=== PATIENT | male | born 1970 | race Caucasian/White ===

== ENCOUNTER → 2016-09-21 | Outpatient (CLI) | payer BC ==
--- NOTE | 2016-09-21 08:33 | CT ---
EXAMINATION TYPE: CT brain wo con DATE OF EXAM: 09/21/2016 8:16 AM COMPARISON: NONE HISTORY: TIA CT DLP: 943.[address] of the brain was performed. The ventricles, basal cisterns and sulci overlying the cerebral convexities demonstrate a normal appe arance. There is no evidence for intracranial hemorrhage or sulcal effacement. No mass effects are seen. Osseous calvarium is intact. Mucous retention cyst left maxillary sinus. If symptoms persist consider MRI as clinically warranted. IMPRESSION: 1. No acute intracranial process is seen at this time.
--- NOTE | 2016-09-21 10:56 | ECHOF ---
Referral Reason:G45.9 TIA MEASUREMENTS -------- HEIGHT: 160.0 cm WEIGHT: 63.5 kg BP: RVIDd: 2.8 cm (< 3.3) IVSd: 1.2 cm (0.6 - 1.1) LVIDd: 4.6 cm (3.9 - 5.3) LVPWd: 0.7 cm (0.6 - 1.1) IVSs: 1.3 cm LVIDs: 3.6 cm LVPWs: 1.1 cm LA Diam: 2.8 cm (2.7 - 3.8) Ao Diam: 2.9 cm (2.0 - 3.7) AV Cusp: 1.7 cm (1.5 - 2.6) LA Diam: 3.3 cm (2.7 - 3.8) MV EXCURSION: 25.662 mm (> 18.000) MV EF SLOPE: 77 mm/s (70 - 150) EPSS: 0.2 cm MV E Joseluis: 0.65 m/s MV DecT: 199 ms MV A Joseluis: 1.13 m/s MV E/A Ratio: 0.57 RAP: 5.00 mmHg RVSP: 9.20 mmHg FINDINGS -------- Sinus rhythm. This was a technically good study. There is mild concentric left ventricular hypertrophy. Overall left ventricular systolic function is low-normal with, an EF between 50 - 55 %. The right ventricle is normal in size. The right atrial size is normal. The aortic valve is trileaflet, and appears structurally normal. No aortic stenosis or regurgitation. Mild mitral regurgitation is present. Redundant MV Leaflet Mild tricuspid regurgitation present. There is no evidence of pulmonary hypertension. The right ventricular systolic pressure, as measured by Doppler, is 9.20mmHg. There is no pulmonic regurgitation present. The aortic root size is normal. There is no pericardial effusion. CONCLUSIONS -------- 1. There is mild concentric left ventricular hypertrophy. 2. Overall left ventricular systolic function is low-normal with, an EF between 50 - 55 %. 3. Mild mitral regurgitation is present. 4. Redundant MV Leaflet 5. Mild tricuspid regurgitation present. 6. There is no evidence of pulmonary hypertension. 7. The right ventricular systolic pressure, as measured by Doppler, is 9.20mmHg. IRISH MOSS GATHERER: Whitney Granados RDCS
== END | disposition home or self-care (01) ==
LOC: RADCTMAIN 07:48
PROVIDERS: ATTEND Internal Medicine
DX: I51.7 Cardiomegaly (principal); I08.1 Rheumatic disorders of both mitral and tricuspid valves; G45.9 Transient cerebral ischemic attack, unspecified
CPT/HCPCS: 70450; 93306

== ENCOUNTER 2017-01-03 09:27 | Emergency (ER) | payer BC ==
[2017-01-03 09:48] VITALS: BP 169/92; PULSE 69; RESP 18; TEMP 97.6
--- NOTE | 2017-01-03 09:58 | ED ---
General Adult HPI - General Chief complaint: Dental/Oral Stated complaint: Dental Time Seen by Provider: 01/03/17 09:52 Source: patient, RN notes reviewed Mode of arrival: ambulatory Limitations: no limitations - History of Present Illness Initial comments: 46-year-old male presents to the emergency Department chief complaint of dental pain. Patient states he started to have dental pain on Monday. Monday he called his dentist he was seen and they state that he needs to have some teeth removed. Patient states he is not starting antibiotics with some swelling to the right side of the face that he was concerned. patient states he called his dentist is . they are unable to see him today to come to the er. patient denies any pain opening closing mouth any pain into the neck. patient states that he has not had any fever chills. patient denies any other symptoms at this time.Patient denies any recent fever, chills, shortness of breath, chest pain, back pain, abdominal pain, nausea vomiting, numbness or tingling, dysuria or hematuria, constipation or diarrhea, headaches or visual changes, or any other current symptoms. - Related Data Previous Rx's Medication Instructions Recorded Acetaminophen-Codeine 300-30mg 1 tab PO Q4H PRN #20 tablet 06/01/15 [Tylenol w/codeine #3] Ibuprofen [Motrin] 600 mg PO Q8HR PRN #20 tab 06/01/15 Penicillin V Potassium [Pen Vee K] 500 mg PO TID #40 tab 01/03/17 Allergies Allergy/AdvReac Type Severity Reaction Status Date / Time No Known Allergies Allergy Verified 01/03/17 09:48 Review of Systems ROS Statement: Those systems with pertinent positive or pertinent negative responses have been documented in the HPI. ROS Other: All systems not noted in ROS Statement are negative. Past Medical History Additional Past Medical History / Comment(s): congenital heart disease, History of Any Multi-Drug Resistant Organisms: None Reported Additional Past Surgical History / Comment(s): heart surgery, testicular surgery Past Psychological History: No Psychological Hx Reported Smoking Status: Current every day smoker Past Alcohol Use History: None Reported Past Drug Use History: None Reported General Exam Limitations: no limitations General appearance: alert, in no apparent distress Head exam: Present: atraumatic, normocephalic. Absent: normal inspection ( Minimal right-sided upper cheek swelling) Eye exam: Present: normal appearance, PERRL, EOMI. Absent: scleral icterus, conjunctival injection, periorbital swelling ENT exam: Present: normal external ear exam Expanded Teeth exam: Present: dental caries, dental tenderness # (6 and 7), other (No abscess visualized). Absent: fractured tooth #, gingival enlargement Neck exam: Present: normal inspection. Absent: tenderness, meningismus, lymphadenopathy Respiratory exam: Present: normal lung sounds bilaterally. Absent: respiratory distress, wheezes, rales, rhonchi, stridor Cardiovascular Exam: Present: regular rate, normal rhythm, normal heart sounds. Absent: systolic murmur, diastolic murmur, rubs, gallop, clicks Neurological exam: Present: alert, oriented X3 Psychiatric exam: Present: normal affect, normal mood Skin exam: Present: warm, dry, intact, normal color. Absent: rash Course Vital Signs 01/03/17 09:45 Temperature 97.6 F Pulse Rate 69 Respiratory 18 Rate Blood Pressure 169/92 O2 Sat by Pulse 99 Oximetry Medical Decision Making - Medical Decision Making 46-year-old male presents to the emergency Department chief complaint of dental pain. This and we will start patient antibiotics. We discussed continued follow-up with a dentist. We did discuss return parameters all the patient's questions. They stated the [facility] management plan. All questions have been answered. This time the patient will be discharged home. Disposition Clinical Impression: Dental caries Disposition: HOME SELF-CARE Condition: Stable Instructions: Dental Caries (ED) Additional Instructions: Please use medication as discussed. Please follow up with family doctor if symptoms have not improved over the next two days. Please return to the emergency room if your symptoms increase or worsen or for any other concerns. Prescriptions: Penicillin V Potassium [Pen Vee K] 500 mg PO TID #40 tab Referrals: Magali Gallego MD [Primary Care Provider] - 1-2 days Time of Disposition: 09:58
== END 2017-01-03 10:12 | disposition home or self-care (01) ==
LOC: EC 09:27
DX: K02.9 Dental caries, unspecified (principal); Q24.9 Congenital malformation of heart, unspecified; F17.200 Nicotine dependence, unspecified, uncomplicated
CPT/HCPCS: 99282

== ENCOUNTER 2018-07-30 14:55 | Emergency (ER) | payer BC ==
[2018-07-30 15:26] VITALS: BP 116/75; PULSE 80; RESP 18; TEMP 98
--- NOTE | 2018-07-30 15:44 | XR ---
EXAMINATION TYPE: XR chest 2V DATE OF EXAM: 07/30/2018 COMPARISON: NONE HISTORY: Cough and congestion. TECHNIQUE: Frontal and lateral views of the chest are obtained. FINDINGS: There is no focal air space opacity, pleural effusion, or pneumothorax seen. The cardiac silhouette size is within normal limits. The osseous structures are demineralized. Spine is straigh tened on lateral view. IMPRESSION: No suspicious acute pulmonary process.
--- NOTE | 2018-07-30 16:45 | ED ---
Fever HPI - General Chief Complaint: Fever Stated Complaint: poss cold or flu Time Seen by Provider: 07/30/18 16:43 Source: patient, RN notes reviewed, old records reviewed Mode of arrival: ambulatory Limitations: no limitations - History of Present Illness Initial Comments: This is a 47-year-old male to the ER for evaluation presents for not feeling we ll. Cough congestion and body aches. Sick contacts, positive family members with influenza. Patient himself has illness, takes no medications denies drugs or alcohol. MD Complaint: fever, weakness -: days(s) Temperature Source: subjective Context: sick contacts, multiple patients with similar symptoms Associated Symptoms: chills, myalgias, headache, nasal congestion, sore throat, cough, chest pain, abdominal pain, nausea Treatments Prior to Arrival: Acetaminophen, Ibuprofen - Related Data Previous Rx's Medication Instructions Recorded Penicillin V Potassium [Pen Vee K] 500 mg PO TID #40 tab 01/03/17 Naproxen [Naprosyn] 500 mg PO Q12HR PRN #30 tab 07/30/18 Oseltamivir [Tamiflu] 75 mg PO Q12HR #10 cap 07/30/18 Allergies Allergy/AdvReac Type Severity Reaction Status Date / Time No Known Allergies Allergy Verified 07/30/18 15:26 Review of Systems ROS Statement: Those systems with pertinent positive or pertinent negative responses have been documented in the HPI. ROS Other: All systems not noted in ROS Statement are negative. Past Medical History Additional Past Medical History / Comment(s): congenital heart disease, History of Any Multi-Drug Resistant Organisms: None Reported Additional Past Surgical History / Comment(s): heart surgery, testicular surgery Past Psychological History: No Psychological Hx Reported Smoking Status: Current every day smoker Past Alcohol Use History: None Reported Past Drug Use History: None Reported General Exam Limitations: no limitations General appearance: alert, in no apparent distress Head exam: Present: atraumatic, normocephalic, normal inspection Eye exam: Present: normal appearance, PERRL, EOMI. Absent: scleral icterus, conjunctival injection, periorbital swelling ENT exam: Present: normal exam, mucous membranes moist Neck exam: Present: normal inspection. Absent: tenderness, meningismus, lymphadenopathy Respiratory exam: Present: normal lung sounds bilaterally. Absent: respiratory distress, wheezes, rales, rhonchi, stridor Cardiovascular Exam: Present: regular rate, normal rhythm, normal heart sounds. Absent: systolic murmur, diastolic murmur, rubs, gallop, clicks GI/Abdominal exam: Present: soft, normal bowel sounds. Absent: distended, tenderness, guarding, rebound, rigid Extremities exam: Present: normal inspection, full ROM, normal capillary refill. Absent: tenderness, pedal edema, joint swelling, calf tenderness Back exam: Present: normal inspection Neurological exam: Present: alert, oriented X3, CN II-XII intact Psychiatric exam: Present: normal affect, normal mood Skin exam: Present: warm, dry, intact, normal color. Absent: rash Course Vital Signs 07/30/18 15:23 Temperature 98.0 F Pulse Rate 80 Respiratory 18 Rate Blood Pressure 116/75 O2 Sat by Pulse 99 Oximetry - Reevaluation(s) Reevaluation #1: Medical record is reviewed Patient symptoms are much improved Medical Decision Making - Medical Decision Making 47 male the ER for evaluation of abdominal pain and aches and myalgias. Positive influenza. Patient can be discharged home - Lab Data Lab Results 07/30/18 Range/Units 15:28 Influenza Type A RNA Detected H (Not Detectd) Influenza Type B (PCR) Not Detected (Not Detectd) - Radiology Data Radiology results: report reviewed (Chest x-rays negative for acute disease), image reviewed Disposition Clinical Impression: Influenza, Influenza A Disposition: HOME SELF-CARE Condition: Good Instructions (If sedation given, give patient instructions): Fever in Adults (ED), Influenza (ED) Prescriptions: Naproxen [Naprosyn] 500 mg PO Q12HR PRN #30 tab PRN Reason: Pain Oseltamivir [Tamiflu] 75 mg PO Q12HR #10 cap Is patient prescribed a controlled substance at d/c from ED?: No Referrals: None,Stated [Primary Care Provider] - 1-2 days
== END 2018-07-30 16:58 | disposition home or self-care (01) ==
LOC: EC 14:55
DX: J10.1 Influenza due to other identified influenza virus with other respiratory manifestations (principal); R07.9 Chest pain, unspecified; R10.9 Unspecified abdominal pain; R11.0 Nausea; F17.200 Nicotine dependence, unspecified, uncomplicated; Z87.74 Personal history of (corrected) congenital malformations of heart and circulatory system; Z98.890 Other specified postprocedural states
CPT/HCPCS: 71046; 87502; 99284

== ENCOUNTER 2019-04-11 03:49 | Emergency (ER) | payer BC, OTHER ==
[2019-04-11 03:56] VITALS: BP 135/74; PULSE 83; RESP 16; TEMP 97.9
--- NOTE | 2019-04-11 04:28 | XR ---
EXAMINATION TYPE: XR foot limited LT DATE OF EXAM: 04/11/2019 COMPARISON: NONE HISTORY: Foot pain TECHNIQUE: 2 views FINDINGS: Metatarsals are intact. I see no fracture nor dislocation. There is an Achilles calcaneal s pur. There are no erosions. IMPRESSION: Minimal calcaneal spurring. No fracture seen.
--- NOTE | 2019-04-11 04:33 | ED ---
Lower Extremity Injury HPI - General Chief Complaint: Extremity Injury, Lower Stated Complaint: lt foot injury Time Seen by Provider: 04/11/19 04:03 Source: patient Mode of arrival: ambulatory Limitations: no limitations - History of Present Illness Initial Comments: Hang is a 48-year-old male who presents to the emergency department today for evaluation of pain in his right great toe. Patient reports that yesterday evening he stubbed his toe, he states that the toe bent and kind of folded under the foot as he was walking on carpet. He had some minimal pain at that time but it was tolerable. He was able to sleep throughout the night but upon waking this morning his toe was throbbing he noticed that it seemed to be more bruised than it was previously he was concerned about whether or not he should be walking on it works again the ER for evaluation. Patient denies other injuries. - Related Data Home Medications Medication Instructions Recorded Confirmed No Known Home Medications 04/11/19 04/11/19 Allergies Allergy/AdvReac Type Severity Reaction Status Date / Time No Known Allergies Allergy Verified 04/11/19 03:55 Review of Systems ROS Statement: Those systems with pertinent positive or pertinent negative responses have been documented in the HPI. ROS Other: All systems not noted in ROS Statement are negative. Past Medical History Additional Past Medical History / Comment(s): congenital heart disease, History of Any Multi-Drug Resistant Organisms: None Reported Additional Past Surgical History / Comment(s): heart surgery, testicular surgery, Past Psychological History: No Psychological Hx Reported Smoking Status: Current every day smoker Past Alcohol Use History: Occasional Past Drug Use History: None Reported General Exam - General Exam Comments Initial Comments: Physical Exam GENERAL: Patient is well-developed and well-nourished. Patient is nontoxic and well-hydrated and is in no distress. HENT: Normocephalic, Atraumatic. EYES: PERRL, EOMI PULMONARY: Unlabored respirations. CARDIOVASCULAR: RRR Warm and well perfused extremities ABDOMEN: Non-distended SKIN: Bruising of the right great toe There is bleeding at the base of the nail where it has been from the soft tissue. There is minimal subungual hematoma. Blood is extruding from under the nail at the base. : Deferred NEUROLOGIC: Alert and oriented Normal speech Normal gait MUSCULOSKELETAL: Moving all extremities with no apparent injury PSYCHIATRIC: No SI/HI Limitations: no limitations Course Vital Signs 04/11/19 03:52 Temperature 97.9 F Pulse Rate 83 Respiratory 16 Rate Blood Pressure 135/74 O2 Sat by Pulse 97 Oximetry Medical Decision Making - Medical Decision Making The patient was seen and evaluated, history is obtained from the patient. Patient stubbed his toe and has bleeding at the base of the toenail with some minimal subungual hematoma. I suspect the patient has pulled the nail out from the nail, likely damaging the matrix. There is no significant active bleeding. The wound was cleansed. Patient states he is up-to-date on his tetanus. Supportive care was advised. I did advise the patient that there is a high likelihood that he will lose the toenail and that a healthy toenail may never grow back due to damage to the matrix. Patient's breast understanding of this. Patient was given a work note to take 2 days off of work. Disposition Clinical Impression: Subungual hematoma of foot Disposition: HOME SELF-CARE Condition: Stable Instructions (If sedation given, give patient instructions): Subungual Hematoma (ED) Is patient prescribed a controlled substance at d/c from ED?: No Referrals: None,Stated [Primary Care Provider] - 1-2 days
== END 2019-04-11 05:01 | disposition home or self-care (01) ==
LOC: EC 03:49
DX: S90.211A Contusion of right great toe with damage to nail, initial encounter (principal); F17.200 Nicotine dependence, unspecified, uncomplicated; M77.32 Calcaneal spur, left foot; W23.1XXA Caught, crushed, jammed, or pinched between stationary objects, initial encounter; Y93.01 Activity, walking, marching and hiking
CPT/HCPCS: 99283

== ENCOUNTER 2019-08-23 04:50 | Emergency (ER) | payer OTHER ==
[2019-08-23 05:00] VITALS: RESP 18
[2019-08-23] MEDS ORDERED: BENZONATATE 100 MG CAP PO STA (05:38)
--- NOTE | 2019-08-23 06:04 | ED ---
URI HPI - General Chief Complaint: Upper Respiratory Infection Stated Complaint: Coughing Time Seen by Provider: 08/23/19 05:01 Source: patient Mode of arrival: ambulatory Limitations: no limitations - History of Present Illness Initial Comments: Pepe is a 48-year-old male who presents to the ER today for evaluation of 3 days of nonproductive cough. Patient was seen and evaluated at bedside expressed concern diagnosed with URI his prescribe steroids which she reports improved his symptoms of the day yesterday. Patient reports that during the night tonight he's been coughing has been keeping him from sleep which prompted the ER for evaluation. She denies any fevers, chills or chest pain. He denies any nausea vomiting or change in bowel or bladder habits. MD Complaint: cough Onset/Timin -: days(s) Severity: moderate Improves With: other (steroids) Associated Symptoms: denies other symptoms - Related Data Previous Rx's Medication Instructions Recorded Azithromycin [Zithromax Z-pack] 0 mg PO DIRECTED #6 tab 08/23/19 Codeine Phosphate/Guaifenesin 5 ml PO Q4H PRN 3 Days #90 ml 08/23/19 [Guaifen-Codeine 100-10 mg/5 ml] Allergies Allergy/AdvReac Type Severity Reaction Status Date / Time No Known Allergies Allergy Verified 08/23/19 05:00 Review of Systems ROS Statement: Those systems with pertinent positive or pertinent negative responses have been documented in the HPI. ROS Other: All systems not noted in ROS Statement are negative. Past Medical History Additional Past Medical History / Comment(s): congenital heart disease, History of Any Multi-Drug Resistant Organisms: None Reported Additional Past Surgical History / Comment(s): heart surgery, testicular surgery, Past Psychological History: No Psychological Hx Reported Smoking Status: Current every day smoker Past Alcohol Use History: Occasional Past Drug Use History: Marijuana General Exam - General Exam Comments Initial Comments: Physical Exam GENERAL: Patient is well-developed and well-nourished. Patient is nontoxic and well-hydrated and is in no distress. HENT: Normocephalic, Atraumatic. EYES: PERRL, EOMI PULMONARY: Unlabored respirations. Crackles at right base CARDIOVASCULAR: RRR Warm and well perfused extremities Repaired pectus excavatum ABDOMEN: Non-distended SKIN: No rashes or bruising : Deferred NEUROLOGIC: Alert and oriented Normal speech Normal gait MUSCULOSKELETAL: Moving all extremities with no apparent injury PSYCHIATRIC: No SI/HI Limitations: no limitations Course Vital Signs 08/23/19 08/23/19 08/23/19 04:57 05:09 06:35 Temperature 98 F 97.5 F L Pulse Rate 76 80 Respiratory 18 18 18 Rate Blood Pressure 150/67 124/76 O2 Sat by Pulse 98 98 Oximetry Medical Decision Making - Medical Decision Making Patient was seen and evaluated history obtained from patient Patient with a nonproductive cough no other symptoms for 2 days Vital signs are unremarkable patient has no hypoxia upon arrival to the emergency department exam concerning for RLL pneumonia Xray confirms Patient comfortable with plan for discharge home with oral antibiotics, cough suppressant Return parameters discussed, patient discharged in stable condition Disposition Clinical Impression: Right lower lobe pneumonia Disposition: HOME SELF-CARE Condition: Stable Instructions (If sedation given, give patient instructions): Community Acquired Pneumonia (DC) Prescriptions: Codeine Phosphate/Guaifenesin [Guaifen-Codeine 100-10 mg/5 ml] 5 ml PO Q4H PRN 3 Days #90 ml PRN Reason: Cough Azithromycin [Zithromax Z-pack] 0 mg PO DIRECTED #6 tab Is patient prescribed a controlled substance at d/c from ED?: No Referrals: Cirilo Stephens MD [Primary Care Provider] - 1-2 days
[2019-08-23 06:37] VITALS: BP 124/76; PULSE 80; TEMP 97.5
--- NOTE | 2019-08-23 06:44 | XR ---
EXAMINATION TYPE: XR chest 1V DATE OF EXAM: 08/23/2019 COMPARISON: 07/30/2018 HISTORY: Cough and congestion TECHNIQUE: FINDINGS: There is some poorly marginated right side perihilar infiltrate. Heart size is normal. Ther e is no heart failure. Costophrenic angles are clear. There is large pulmonary artery. IMPRESSION: There is new right side perihilar infiltrate compared to old exam that could relate to pn eumonia. No heart failure.
== END 2019-08-23 06:55 | disposition home or self-care (01) ==
LOC: EC 04:50
DX: J18.1 Lobar pneumonia, unspecified organism (principal); F17.200 Nicotine dependence, unspecified, uncomplicated
CPT/HCPCS: 71045; 99283